=== PATIENT | female | born 1980 | race Caucasian/White ===

== ENCOUNTER → 2020-02-28 | Outpatient (CLI) | payer SELFPAY ==
[~2020-02-28] MED LIST: CATHETER FLUSH 10 ML SYR IV PRN; HOLD METFORMIN - RECEIVED CONTRAST 20 ML VIAL IV SCH; IOHEXOL 350 MG/ML 100 ML (OMNIPAQUE 350) VIAL IV ONE; NS 100 ML (IVPB) BAG IV ONE
--- NOTE | 2020-02-28 10:04 | Diagnostic Imaging Report ---
PROCEDURE: CT neck soft tissue with contrast. TECHNIQUE: Multiple contiguous axial images were obtained through the neck after the administration of contrast. Auto Exposure Controls were utilized during the CT exam to meet ALARA standards for radiation dose reduction. INDICATION: Right-sided neck pain for 2 months. COMPARISON: None. Findings: The posterior nasopharynx and oropharynx demonstrate appropriate symmetry. There is no displacement of the parapharyngeal fat planes. There is no abnormal process evident within the prevertebral or retropharyngeal space. There is no evidence of abnormal thickening of the epiglottis or aryepiglottic folds. The vocal folds appear symmetric. The parotid, submandibular and thyroid gland are unremarkable. No pathologically enlarged cervical lymph nodes are evident. No focal inflammatory changes are demonstrated. No soft tissue mass or fluid collection demonstrated. The vascular structures the neck demonstrate no evidence of high-grade stenosis on this nondedicated exam. The visualized lung apices are clear. The visualized intracranial contents demonstrate no evidence of pathologic intracranial enhancement or intracranial mass effect. Visualized orbital contents are unremarkable. The visualized paranasal sinuses are clear. The mastoids and middle ears are clear. No acute osseous abnormality in the cervical spine. Endplate degenerative changes are present at the C6-C7 level. Impression: 1. Appropriate symmetry of the aerodigestive tract. 2. No evidence of pathologic adenopathy. 3. No soft tissue mass, fluid collection or focal inflammatory changes demonstrated. Dictated by: Dictated on workstation # [id number]
== END ==
LOC: RAD FS 08:48
PROVIDERS: ATTEND Otolaryngology Otolaryngology/Facial Plastic Surgery
DX: J31.2 Chronic pharyngitis (principal)
CPT/HCPCS: 70491

== ENCOUNTER 2020-03-29 05:45 | Outpatient (RCR) | payer OTHER ==
[2020-03-29] MEDS ORDERED: TOPI50TA37 PO (14:35)
[2020-03-29] MEDS ORDERED: CITA40TA19 PO (14:35)
[2020-03-29] MEDS ORDERED: OMEP40CA27 PO (14:35)
[2020-03-29] MEDS ORDERED: CETI10TA49 PO (14:35)
[2020-03-29] MEDS ORDERED: AMIT75TA2 PO (14:35)
== END 2020-03-29 14:38 | disposition home or self-care (01) ==
LOC: PREOP 05:45
PROVIDERS: ATTEND Otolaryngology Otolaryngology/Facial Plastic Surgery
DX: Z01.818 Encounter for other preprocedural examination (principal)

== ENCOUNTER 2020-04-05 07:58 | Day surgery (SDC) | payer OTHER ==
[~2020-04-05] VITALS: Ht 154.9 cm; Wt 77.3 kg
[2020-04-05] VITALS (11 sets, daily range): BP systolic 108–133; BP diastolic 65–89
[~2020-04-05 07:58] MED LIST changes: +AMIT75TA2 PO; -CATHETER FLUSH 10 ML SYR IV PRN; +CETI10TA49 PO; +CITA40TA19 PO; -HOLD METFORMIN - RECEIVED CONTRAST 20 ML VIAL IV SCH; -IOHEXOL 350 MG/ML 100 ML (OMNIPAQUE 350) VIAL IV ONE; -NS 100 ML (IVPB) BAG IV ONE; +OMEP40CA27 PO; +TOPI50TA37 PO
[2020-04-05] MEDS ORDERED: LACTATED RINGERS 1,000 ML IV PRN (08:30)
[2020-04-05] MEDS ORDERED: ROCURONIUM 10 MG/ML 5 ML SYRINGE IV ONE (10:00)
[2020-04-05] MEDS ORDERED: SEVOFLURANE (ULTANE) 15 ML INHAL SOLN ONE ×2 (10:00→11:08)
[2020-04-05] MEDS ORDERED: proPOfol 200 MG/20 ML (DIPRIVAN) VIAL IV ONE (10:00)
[2020-04-05] MEDS ORDERED: LIDOCAINE PF 2% 5 ML (XYLOCAINE) VIAL ONE (10:00)
[2020-04-05] MEDS ORDERED: fentaNYL INJECTION 100 MCG/2 ML AMP ONE (10:01)
[2020-04-05] MEDS ORDERED: MIDAZOLAM 2 MG/2 ML (VERSED) VIAL ONE (10:02)
[2020-04-05] MEDS ORDERED: LIDOCAINE/EPI 1%-1:100,000 (XYLOCAINE) 50 ML ONE (10:18)
--- NOTE | 2020-04-05 10:52 | Progress Note-Pre Operative ---
Pre-Operative Progress Note H&P Reviewed The H&P was reviewed, patient examined and no changes noted. Date Seen by Provider: Apr 05, 2020 Time Seen by Provider: 10: Date H&P Reviewed: Apr 05, 2020 Time H&P Reviewed: 10:30 Pre-Operative Diagnosis: Right Base of Tongue Mass/Swelling HALLIE MCLAUGHLIN MD Apr 05, 2020 10:52
--- NOTE | 2020-04-05 11:05 | Progress Note-Post Operative ---
Post-Operative Progess Note Surgeon (s)/Fudger (s) Surgeon HALLIE MCLAUGHLIN MD Fudger n/a Pre-Operative Diagnosis Right Base of Tongue Mass/Swelling Post-Operative Diagnosis same Post-Op Procedure Note Date of Procedure: Apr 05, 2020 Name of Procedure Performed: Direct Laryngosocpy with Biopsy of Right BAse of Tongue Description & Findings Description and Findings: n/a Anesthesia Type get Estimated Blood Loss minimal Packing none. Specimen(s) collected/removed right base of tongue biopsies-to pathology for frozen section HALLIE MCLAUGHLIN MD Apr 05, 2020 11:04
[2020-04-05] MEDS ORDERED: ONDANSETRON 4 MG/2 ML (SDV) Z0FRAN ONE (11:08)
[2020-04-05] MEDS ORDERED: ACETAMINOPHEN 325 MG TABLET PO PRN (11:15)
[2020-04-05] MEDS ORDERED: PROMETHAZINE INJ 25 MG/ML (PHENERGAN) AMP IV PRN (11:15)
[2020-04-05] MEDS ORDERED: HYDROcodone/APAP 7.5MG-325 MG/15 ML (LORTAB) UDC PO PRN (11:15)
[2020-04-05] MEDS ORDERED: NEOSTIGMINE 3 MG/3 ML VIAL ONE (11:19)
[2020-04-05] MEDS ORDERED: GLYCOPYRROLATE 0.2 MG/ML (ROBINUL) 2 ML VIAL ONE (11:19)
--- NOTE | 2020-04-05 11:37 | Anesthesia-General Post-Op ---
General Patient Condition Mental Status/LOC: Same as Preop Cardiovascular: Satisfactory Nausea/Vomiting: Absent Respiratory: Satisfactory Pain: Controlled Complications: Absent Post Op Complications Complications None Follow Up Care/Instructions Patient Instructions None needed. Anesthesia/Patient Condition Patient Condition Patient is doing well, no complaints, stable vital signs, no apparent adverse anesthesia problems. No complications reported per nursing. LUIS ALBERTO ELLIS CRNA Apr 05, 2020 11:37
[2020-04-05] MEDS ORDERED: HYDR15SO8 PO (12:30)
[2020-04-05] MEDS ORDERED: 2% Viscous Xylocaine PO (12:30)
[2020-04-05] MEDS ORDERED: HYDROcodone/APAP 7.5MG-325 MG/15 ML (LORTAB) UDC ONE (12:44)
== END 2020-04-05 13:15 | disposition home or self-care (01) ==
LOC: SDC 07:58
PROVIDERS: ATTEND Otolaryngology Otolaryngology/Facial Plastic Surgery
DX: J38.7 Other diseases of larynx (principal); F41.9 Anxiety disorder, unspecified; F32.9 Major depressive disorder, single episode, unspecified; K21.9 Gastro-esophageal reflux disease without esophagitis; Z79.899 Other long term (current) drug therapy; Z88.5 Allergy status to narcotic agent; Z87.891 Personal history of nicotine dependence
CPT/HCPCS: 84703; 87081